=== PATIENT | female | born 1940 | race Caucasian/White ===

== ENCOUNTER 2017-01-19 22:44 | Emergency (ER) | payer OTHER ==
[~2017-01-19] VITALS: Ht 160 cm; Wt 72.0 kg
[~2017-01-19 22:44] MED LIST: ASPI81 PO; BONI150T PO; CALCCHW6 CHEW; CARV6.25 PO; FISH1000 PO; HYDR-3533 PO; LEVO.075 PO; MEVA40TA6 PO
[2017-01-19 22:48] VITALS: BP 185/80; PULSE 60; RESP 18; TEMP 98.4; O2SAT 98
[2017-01-20] MEDS ORDERED: CARV12.5 PO (00:21)
[2017-01-20] MEDS ORDERED: ASPI81TA81 (00:21)
[2017-01-20] MEDS ORDERED: LEVO.075 PO (00:21)
[2017-01-20] MEDS ORDERED: ESCI5TAB PO (00:21)
[2017-01-20] MEDS ORDERED: LOVA40TA PO (00:21)
[2017-01-20] MEDS ORDERED: FAMOTIDINE 20 MG TAB PO ONE (01:00)
[2017-01-20] MEDS ORDERED: LIDOCAINE VISCOUS 2% SOLN 15 ML UDC PO ONE (01:00)
[2017-01-20] MEDS ORDERED: ALUMINUM/MAGNESIUM/SIMETH 30 ML CUP PO ONE (01:00)
--- NOTE | 2017-01-20 01:32 | RADRPT ---
EXAM DATE/TIME: 01/20/2017 01:16 [place] COMPARISON: No previous studies available for comparison. INDICATIONS : Cough MEDICAL HISTORY : Hypothyroidism. Hypertension Hiatal hernia. GERD SURGICAL HISTORY : Tonsillectomy. Appendectomy. Fusion, lumbar. Orthodedic surgery on pelvis, lower and upper extremity ENCOUNTER: Initial ACUITY: 1 day PAIN SCORE: 0/10 LOCATION: Bilateral chest FINDINGS: PA and lateral views of the chest demonstrate the lungs to be clear with no acute infiltrate or effus ion. Heart size is prominent a well compensated. Old compression fracture superior endplate of one of the lower dorsal vertebral bodies. Transpedicular posterior fixation of the lower lumbar spine. CONCLUSION: 1. Compensated cardiomegaly. 2. No acute infiltrate or effusion 3. Old compression fractures of the superior endplate of one of the lower dorsal vertebral bodies. Tr anspedicular fixation of the lower lumbar spine. Yasmani Mar MD on January 20, 2017 at 1:29 Board Certified Radiologist. This report was verified electronically.
[2017-01-20] MEDS ORDERED: ZANT150T2 PO (02:07)
--- NOTE | 2017-01-20 02:08 | PD ---
HPI Chief Complaint: ENT Complaint Time Seen by Provider: 00:46 Travel History International Travel<30 days: No Contact w/Intl Traveler<30days: No Traveled to known affect area: No History of Present Illness HPI Patient is a 77 year old female who comes in complaining of burning in her throat. She has history of GERD and esophageal stricture and has had issues like this in the past, but she got scared tonight because she felt like she could not swallow. She denies ever having any chest pain. She says she feels the acid coming up into her throat. She denies fever or chills. PFSH Past Medical History Arthritis: Yes Asthma: No Autoimmune Disease: No Blood Disorders: No Anxiety: Yes Heart Rhythm Problems: Yes (PALPATATIONS) Cancer: No Cardiac Catheterization: No Cardiovascular Problems: Yes (HTN) High Cholesterol: Yes Congestive Heart Failure: No COPD: No Diabetes: No Endocrine: Yes Gastrointestinal Disorders: Yes GERD: Yes Genitourinary: No Headaches: Yes Hiatal Hernia: Yes Hypertension: Yes Immune Disorder: No Implanted Vascular Access Dvce: Yes Musculoskeletal: Yes Neurologic: No Psychiatric: Yes (CLAUSTRAPHOBIA) Reproductive: No Respiratory: No Myocardial Infarction: No Thyroid Disease: Yes (HYPOTHYROID) Past Surgical History Abdominal Surgery: Yes (EXP LAP/ APPY/ PARTIAL COLECTOMY) Appendectomy: Yes Body Medical Devices: LEFT FEMORAL [place],, HARDWARE LEFT WRIST Coronary Artery Bypass Graft: No Gynecologic Surgery: Yes (PELVIC FRACTURE WITH REPAIR) Hysterectomy: Yes (PARTIAL) Oral Surgery: Yes (T & A) Tonsillectomy: Yes (T&A) Other Surgery: Yes (LOWER BACK SURGERY (2 RODS)) Family History Family Myocardial Infarction: Yes Social History Alcohol Use: No Tobacco Use: Yes (QUIT LONG AGO) Substance Use: No Allergies-Medications (Allergen,Severity, Reaction): Coded Allergies: Aspirin (Verified Allergy, Severe, PATIENT STATES CAN TAKE ENTERIC COATED ASPIRIN PER NURSE, 01/19/17) Penicillin (Verified Allergy, Severe, 01/19/17) Tetracycline (Verified Allergy, Severe, 01/19/17) Epinephrine (Verified Adverse Reaction, Intermediate, PALPITATIONS, 01/19/17 ) DELAYED REACTION/ PALPATATIONS Reported Meds & Prescriptions Reported Meds & Active Scripts Active Zantac (Ranitidine HCl) 150 Mg Tab 150 Mg PO BID Lortab 5 mg/325 mg (Hydrocodone/Acetaminophen 5 mg/325 mg) 1 Tab 1-2 Tab PO Q4H PRN Reported Escitalopram (Escitalopram Oxalate) 5 Mg Tab 5 Mg PO DAILY Lovastatin 40 Mg Tab 40 Mg PO DAILY Synthroid (Levothyroxine Sodium) 75 Mcg Tab 75 Mcg PO DAILY Coreg (Carvedilol) 12.5 Mg Tab 12.5 Mg PO BID Aspir-81 (Aspirin) 81 Mg Tabdr Aspirin 81 Mg Tab 81 Mg PO DAILY Boniva (Ibandronate Sodium) 150 Mg Tab 150 Mg PO MONTHLY Viactiv (Calcium Carbonate) Chw 1 Chew CHEW BID Fish Oil 1,000 Mg Cap 1,000 Mg PO BID Synthroid (Levothyroxine Sodium) 75 Mcg Tab 75 Mcg PO DAILY Mevacor (Lovastatin) 40 Mg Tab 40 Mg PO HS Coreg 6.25 mg (Carvedilol) 6.25 Mg Tab 6.25 Mg PO BID Review of Systems Except as stated in HPI: all other systems reviewed are Neg General / Constitutional: No: Fever, Chills HENT: Positive: Sore Throat, No: Headaches, Lightheadedness Cardiovascular: No: Chest Pain or Discomfort Respiratory: Positive: Cough Gastrointestinal: No: Nausea, Vomiting, Abdominal Pain Musculoskeletal: No: Myalgias, Pain Skin: No Rash, No Change in Pigmentation Neurologic: No: Weakness, Dizziness Physical Exam Narrative GENERAL: Awake and alert, in no acute distress. SKIN: Focused skin assessment warm/dry. HEAD: Atraumatic. Normocephalic. EYES: Pupils equal and round. No scleral icterus. ENT: Mucous membranes pink and moist. No tonsillar swelling or exudates. No pharyngeal swelling. Uvula is midline. NECK: Trachea midline. No JVD. CARDIOVASCULAR: Regular rate and rhythm. No murmur appreciated. RESPIRATORY: No accessory muscle use. Clear to auscultation. Breath sounds equal bilaterally. GASTROINTESTINAL: Abdomen soft, non-tender, nondistended. MUSCULOSKELETAL: No obvious deformities. No clubbing. No cyanosis. No edema. NEUROLOGICAL: Awake and alert. No obvious cranial nerve deficits. Motor grossly within normal limits. Normal speech. PSYCHIATRIC: Appropriate mood and affect; insight and judgment normal. Data Data Last Documented VS Vital Signs Date Time Temp Pulse Resp B/P Pulse Ox O2 Delivery O2 Flow Rate FiO2 01/20/17 00:18 18 01/19/17 22:48 98.4 60 185/80 98 Room Air Orders Chest, Pa & Lat (01/20/17 ) Al-Mag Hy-Si 40-40-4 Mg/Ml Liq (Mag-Al P (01/20/17 01:00) Lidocaine 2% Viscous (Xylocaine 2% Visco (01/20/17 01:00) Famotidine (Pepcid) (01/20/17 01:00) MDM Medical Decision Making Medical Screen Exam Complete: Yes Emergency Medical Condition: Yes Medical Record Reviewed: Yes Differential Diagnosis GERD versus aspiration versus gastritis Narrative Course Patient is a 77-year-old female comes in complaining of burning in her throat and a sensation of acid reflux. Exam shows no acute abnormality. Chest x-ray performed shows no acute abnormalities. Patient given GI cocktail and reports feeling much better. She'll be discharged with a prescription for Zantac. Advised to take Mylanta or Maalox as needed for symptom control. Advised follow -up with her canvas worker. Advised to return to the emergency department as needed for any worsening symptoms. Diagnosis Primary Impression: GERD (gastroesophageal reflux disease) Qualified Code: K21.9 - Gastroesophageal reflux disease without esophagitis Patient Instructions: Gastroesophageal Reflux Disease (ED), General Instructions Additional Instructions: Avoid spicy foods. Take Mylanta as needed. Take Zantac for control of acid reflux. Follow up with your canvas worker. Return to the ED as needed for any worsening symptoms. Scripts Ranitidine (Zantac)150 Mg Uet400 Mg PO BID #60 TAB Ref 0 Prov:Abby Negro MD 01/20/17 Disposition: 01 DISCHARGE HOME Condition: Stable Abby Negro MD Jan 20, 2017 02:08
== END 2017-01-20 02:42 | disposition home or self-care (01) ==
LOC: NEPE 22:44
DX: K21.9 Gastro-esophageal reflux disease without esophagitis (principal); R00.2 Palpitations; E03.9 Hypothyroidism, unspecified; I10 Essential (primary) hypertension; E78.00 Pure hypercholesterolemia, unspecified; Z79.82 Long term (current) use of aspirin; Z79.899 Other long term (current) drug therapy
CPT/HCPCS: 71020; 99283